=== PATIENT | male | born 2000 | race Caucasian/White ===

== ENCOUNTER 2018-07-31 15:16 | Inpatient (IN) | payer OTHER ==
[2018-07-31] MEDS ORDERED: Nicotine Inhaler* 10 MG AMP INH PRN (16:01)
[2018-07-31] MEDS ORDERED: Mouth Piece, Nicotine* 1 EACH CARTRIDGE INH PRN (16:01)
--- OUTSIDE RECORDS SUMMARY | 2018-07-31 16:09 | XMS REPORT | Continuity of Care Document ---
:2000 External Reference #:[id number] Author Name Jb Covarrubias Care Team Providers Name Role Phone Dominique Bui O.D. Care Team Information General Cleaner Unavailable Payers Type Date Identification Numbers Payment Provider Subscriber Policy Number: [id number] [employer]ible [facility] Luis Stewart Group Number: [id number] Group Name: [id number] [place] [address] PayID: [id number] Advance Directives Description No Information Available Problems Date Description Provider Status Onset: Mild depression Active Onset: 07/08/2018 Injury of conjunctiva and corneal Dominique Bui O.D. Active abrasion without foreign body, right eye, initial encounter Family History Date Family Member(s) Problem(s) Comments Father No Current Problems Mother No Current Problems Social History Type Date Description Comments Sex Unknown Marital Status Single Occupation Student [employer] ETOH Use Occasionally consumes alcohol Tobacco Use Start: Unknown End: Unknown Electronic Cigarette Smoking Status Reviewed: 07/08/18 Electronic Cigarette Allergies, Adverse Reactions, Alerts Date Description Reaction Status Severity Comments 07/08/2018 Amoxicillin Active Medications Medication Date Status Form Strength Qnty SIG Indications Ordering Provider Polytrim Active Solution 18075-7.1Un 10ml 1 drop S05.01xA Dominique Desir 018 it/ML-% right eye [place], three O.D. times a day Fluoxetine Active Capsules 20mg Take 1 Unknown HCL 000 Capsule By Mouth Every Day Immunizations Description No Information Available Vital Signs Description No Information Available Results Description No Information Available Procedures Date Code Description Status 07/08/2018 98006 New Patient Comprehensive Exam Completed Encounters Description No Information Available Plan of Treatment 07/08/2018 - Dominique Bui O.D.S05.01xA Injury of conjunctiva and corneal abrasion without foreign bNew Medication:Polytrim 76646-2.1 Unit/ML-% - 1 drop right eye three times a dayComments:There is a scratch on the surface of your right eye. It will heal on it's own. Use artificial tears as needed to help with irritation. Do not get water in the eye todayUse polytrim drops 3 times a day for 2 days. If your symptoms persist beyond 2 days, please call the office to be seen
--- NOTE | 2018-07-31 16:10 | ED ---
Psychiatric Complaint - HPI Summary HPI Summary: This patient is a 18 year old M presenting to ED with a chief complaint of SI thoughts without a plan since 1 week ago. Within the last week, the patient reports that he cant do anything and is seeing his condition spiral down. He has an appointment scheduled to be seen for his sx but the thoughts have become too much that he brought himself to the ED to be evaluated. This will be the first time he has been to the hospital for his sx. He has had no prior attempts but has come close several times. PMHx of depression (dx 1 year ago). At that time, he went on SSRI and took a semester off of school. After, he felt stable to get off of therapy but stayed on SSRI. Looking back, he thinks he was in a manic state. Then recently, he went back into depression and talked to his therapist and the doctor that dx him. They think he might be bipolar. - History Of Current Complaint Chief Complaint: EDMentalHealth Hx Obtained From: Patient Onset/Duration: Sudden Onset, Lasting Weeks, Still Present Timing: Weeks Severity Currently: None Character: Depressed Aggravating Factor(s): Nothing Alleviating Factor(s): Nothing Related History: Positive For: Prior Psychiatric Issues Has Suicidal: Reports: Thoughts. Denies: With A Plan - Allergies/Home Medications Allergies/Adverse Reactions: Allergies Allergy/AdvReac Type Severity Reaction Status Date / Time amoxicillin Allergy Hives Verified 08/01/18 02:07 PMH/Surg Hx/FS Hx/Imm Hx Endocrine/Hematology History: Denies: Hx Diabetes Psychiatric History: Reports: Hx Depression Infectious Disease History: No Infectious Disease History: Denies: Traveled Outside the [place] in Last 30 Days - Family History Known Family History: Negative: Diabetes - Social History Alcohol Use: None Substance Use Type: Reports: None Smoking Status (MU): Never Smoked Tobacco Review of Systems Negative: Fever, Chills Negative: Erythema Negative: Sore Throat Negative: Chest Pain Negative: Shortness Of Breath, Cough Negative: Abdominal Pain, Vomiting, Nausea Negative: dysuria, hematuria Negative: Myalgia, Edema Negative: Rash Neurological: Other - denies dizziness Positive: Depressed, Other - SI All Other Systems Reviewed And Are Negative: Yes Physical Exam - Summary Physical Exam Summary: Constitutional: Well-developed, Well-nourished, Alert. (-) Distressed Skin: Warm, Dry HENT: Normocephalic; Atraumatic Eyes: Conjunctiva normal Neck: Musculoskeletal ROM normal neck. (-) JVD, (-) Stridor, (-) Tracheal deviation Cardio: Rhythm regular, rate normal, Heart sounds normal; Intact distal pulses; The pedal pulses are 2+ and symmetric. Radial pulses are 2+ and symmetric. (-) Murmur Pulmonary/Chest wall: Effort normal. (-) Respiratory distress, (-) Wheezes, (-) Rales Abd: Soft, (-) epigastric tenderness, (-) Distension, (-) Guarding, (-) Rebound Musculoskeletal: (-) Edema Lymph: (-) Cervical adenopathy Neuro: Alert, Oriented x3 Psych: Mood and affect Normal Triage Information Reviewed: Yes Vital Signs On Initial Exam: Initial Vitals Temp Pulse Resp BP Pulse Ox 98.1 F 69 18 157/93 100 07/31/18 15:23 07/31/18 15:23 07/31/18 15:23 07/31/18 15:23 07/31/18 15:23 Vital Signs Reviewed: Yes Diagnostics - Vital Signs Vital Signs Temp Pulse Resp BP Pulse Ox 07/31/18 15:23 98.1 F 69 18 157/93 100 - Laboratory Result Diagrams: 07/31/18 16:14 07/31/18 16:12 Lab Statement: Any lab studies that have been ordered have been reviewed, and results considered in the medical decision making process. Course/Dx - Course Assessment/Plan: This patient is a 18 year old M presenting to ED with a chief complaint of SI thoughts without a plan since 1 week ago. Patient was medically cleared at 1557. This patient will be signed out to Dr. Alcala, pending dispo, awaiting E. - Differential Dx/Clinical Impression Provider Diagnosis: Unspecified mood [affective] disorder Discharge - Sign-Out/Discharge Documenting (check all that apply): Sign-Out Patient - pending dispo, awaiting MHE Signing out patient TO: Lucia Alcala Receiving patient FROM: Vincent Hamlin - Discharge Plan Condition: Improved Disposition: ADMITTED TO [facility] - Billing Disposition and Condition Condition: IMPROVED Disposition: Admitted to [facility] - Attestation Statements Document Initiated by Scribe: Yes Documenting Scribe: Jaden Becerra Provider For Whom Scribe is Documenting (Include Credential): Vincent Hamlin MD Scribe Attestation: I, Jaden Becerra, scribed for Vincent Hamlin MD on 08/04/18 at 1134. Scribe Documentation Reviewed: Yes Provider Attestation: The documentation as recorded by the scribe, Jaden Becerra accurately reflects the service I personally performed and the decisions made by me, Vincent Hamlin MD
[2018-07-31 16:30] LABS: ABS Basophils 0.1 10^3/ul (0-0.2); ABS Eosinophils 0.1 10^3/ul (0-0.6); ABS Monocytes 0.6 10^3/ul (0-0.8); ABS Neutrophils 5.7 10^3/ul (1.5-7.7); ABS Nucleated RBC 0 10^3/ul; Eosinophil % 1.4 % (0-6); Hematocrit 46 % (42-52); Hemoglobin 15.6 g/dl (14.0-18.0); Lymphocyte % 23.6 % (25-47); Mean Corpuscular HGB Conc 34 g/dl (31-36); Mean Corpuscular Hemoglobin 32 pg (27-31); Mean Corpuscular Volume 94 fL (80-94); Mean Platelet Volume 8.4 um3 (7.4-10.4); Nucleated Red Blood Cells % 0.2; Platelet Count 307 10^3/ul (150-450); Red Blood Count 4.94 10^6/ul (4.00-5.40); Red Cell Distribution Width 14 % (10.5-15); White Blood Count 8.5 10^3/ul (3.5-10.8)
[2018-07-31 16:41] LABS: EGFR Non-African American 94.2 (>60)
--- NOTE | 2018-07-31 19:47 | ED ---
Progress - Progress Note Progress Note: 19:00 hrs - Pt sign out received from Dr. Vincent Hamlin MD at the change of shift due to a pending MHE Course/Dx - Course Course Of Treatment: Pt admited voluntarily to Dr. Mayes with a final Dx of unspecified mood disorder. - Diagnoses Provider Diagnoses: Unspecified mood [affective] disorder Discharge - Sign-Out/Discharge Documenting (check all that apply): Patient Departure - Admit - Discharge Plan Condition: Stable Disposition: ADMITTED TO [facility] - Billing Disposition and Condition Condition: STABLE Disposition: Admitted to [facility] - Attestation Statements Document Initiated by Scribe: Yes Documenting Scribe: Latisha Cruz Provider For Whom Deniz is Documenting (Include Credential): Dr. Lucia Alcala MD Scribe Attestation: Latisha Sam , scribed for Dr. Lucia Alcala MD on 08/01/18 at 0516. Scribe Documentation Reviewed: Yes Provider Attestation: The documentation as recorded by the Latisha zelaya accurately reflects the service I personally performed and the decisions made by , Dr. Lucia Alcala MD
[2018-07-31 22:36] LABS: Urine Appearance Cloudy; Urine Blood Negative (Negative); Urine Color Straw; Urine Ketones Negative (Negative); Urine Protein Negative (Negative); Urine Specific Gravity 1.008 (1.010-1.030); Urine Urobilinogen Negative (Negative)
[2018-08-01] MEDS ORDERED: Al Hydrox/Mg Hydrox/Simet LIQ* 30 ML UDC PO PRN (04:53)
[2018-08-01] MEDS ORDERED: Acetaminophen TAB* 325 MG PO PRN (04:53)
[2018-08-01] MEDS ORDERED: Nicotine GUM* 2 MG PO PRN (04:53)
[2018-08-01] MEDS ORDERED: hydrOXYzine HCL TAB* 50 MG PO PRN (04:55)
[2018-08-01 07:55] VITALS: BP 110/61
[2018-08-01] MEDS ORDERED: Vitamin THERAPEUTIC TAB PO SCH (09:00)
--- NOTE | 2018-08-02 00:51 | HP ---
CC: [facility]; [facility]; Dr. Owens, [place] * HISTORY AND PHYSICAL AND DISCHARGE SUMMARY: DATE OF ADMISSION: 08/01/18 DATE OF DISCHARGE: 08/01/18 SUPERVISING PSYCHIATRIST: Dr. Dong Mayes.* (DICTATED BY WE[facility] ROACH NP) JUSTIFICATION FOR ADMISSION: The patient presented to the emergency department due to increased depressed mood and suicidal ideation. He denied plan of suicide or intent. He reported difficulty with mood swings and concern about bipolar disorder. The patient also reported daily marijuana use. HISTORY OF PRESENT ILLNESS: Jb is a 18-year-old student of [employer] , who presented to the emergency department seeking assistance in obtaining psychiatric services. He reports having attempted to obtain counseling services through [employer] and was fearful that he was not able to wait due to increased depression, anxiety, and thoughts of suicide. The patient has been prescribed fluoxetine 20 mg for approximately a year by his primary care provider. It was at the same time of year last year when attending [employer] that he started having increased problems with depression and anxiety. He chose to take a medical leave in the spring of this year and stayed home for the summer in [place]. He returned to college in April of this year. He states that things went well for a couple of weeks. He reports periods of feeling energized and identifies feeling overconfident and "putting a lot on my plate." He states he has periods of high achievement and hyperfocus, he states , in these. He also had decreased need of sleep. The patient reports that after these periods of feeling energized, he quickly plummets to a depressed state wherein he is isolative, has difficulty concentrating, has poor appetite, excessive guilt, anhedonia, and sporadic sleep. He states that he endorses moderate anxiety, which is at times a motivator for him to complete tasks as well. He reports increase in thoughts of suicide and use of marijuana in the past few months. He is concerned about mood swings. I do not see evidence of severe mood lability, grandiosity. He is calm and in behavioral control and he is able to converse with congruent affect. He denies current suicidal ideation. He states that he was not expecting to be admitted to the hospital. He states preference to return to school this weekend, so as not to become behind in schoolwork. He is an avid swimmer and has a swim meet to attend tomorrow. This promotion writer reaches out to his mother, Imani, at [phone]. She reports that she is preparing to come to [place] to support her son. She states that he has a pretty significant history of depressive episodes. She states that he has been working very well with his primary care provider who is prescribing fluoxetine, but has been hesitant to do any further medication changes until he is seen by a psychiatrist. They have reached out to various providers and are having difficulty finding those who accept his insurance; also access to available providers is a barrier. His mother states that she is supportive of him to remain in the hospital over the weekend and states understanding for rationale. She states she is also supportive of him to be discharged, as she was already planning to come to [place]. After above conversation with promotion writer, the patient spoke with his mother when given option of remaining in the hospital to help with referral to outpatient providers or to be discharged to the care of his mother, the patient chose to be discharged. The patient denies suicidal ideation. He denies phobias, obsessions, or rituals. He denies HI or . There are no overt delusional or perceptual disturbances. PAST PSYCHIATRIC HISTORY: One year ago, the patient sought outpatient therapy and met with Sophie Recio locally, he took a medical leave spring and while at home he met with therapist, Greyson Smyth. He has already set up an intake at [facility] for this coming , 08/07/18. TRAUMA ABUSE HISTORY: The patient denies abuse. His father was killed in a motor vehicle accident when [place] was an infant and his younger brother was a year old. His high school cricket coach suddenly in her 30s. A friend of his from high school recently accidently overdosed on heroin. MEDICAL HISTORY: Healthy. SURGICAL HISTORY: [place] teeth extraction. PRIMARY CARE PROVIDER: Locally is [facility]. He also has a fire protection specialist, Dr. Owens, in [place]. CURRENT MEDICATIONS: Fluoxetine 20 mg daily. FAMILY PSYCHIATRIC HISTORY: Alcoholism, father. The patient reports concern that his younger brother has depression. Paternal grandmother, depression. Maternal great-grandmother, depression. The patient is not aware of suicide, bipolar, or schizophrenia in his family. SOCIAL HISTORY: The patient was born in [place] to parents. He has a maternal half-sister from his mother's first marriage. She is now in her 30s and gravely disabled due to Abdi-Gastaut disease. As stated above his father tragically in a motor vehicle crash when he was an . His mother has had a long-term boyfriend in the past, but otherwise not remarried. Shortly approximately a year after his father , the family relocated to [place], being graduated from high school. He is an avid swimmer and a state champion. He identifies as heterosexual, he is not currently dating. LEGAL HISTORY: He reports simple traffic tickets. SUBSTANCE USE HISTORY: The patient reports drinking alcohol occasionally, this past week he drank alone to the point of intoxication. He reports a history of experimenting with LSD and mushrooms. He states that he smokes marijuana daily and vapes tobacco. REVIEW OF SYSTEMS: Constitutional: Negative. No fever, chills, or fatigue. ENT: Negative. Cardiovascular: Negative. Denies chest pain or palpitations. Respiratory: Negative, but denies cough or shortness of breath. Genitourinary : Negative. Musculoskeletal: Negative. Neurological: Negative. PHYSICAL EXAM: The patient is a healthy and well-appearing adult. He declines offer of physical exam citing lack of subjective need; this is appropriate as he was examined in the emergency department. Please see ED provider report for further details. VITAL SIGNS: T 97.6, P 44, respiratory rate 16, O2 saturation 99%, BP 110/61. MENTAL STATUS EXAM: The patient is a 18-year-old, thin-framed, athletic build, white male, who appears stated age. He is cooperative and pleasant. He answers questions fully and appears to be a good historian. He is alert and oriented x3. Concentration is good. Memory is 3/3. Mood is dysphoric. Affect is full range. Speech is regular rate and rhythm with some heightened volume at times. Thought process is circumstantial, logical, and coherent. Content of thought is negative for obsessions, phobias, rituals, and delusions. He denies AH or VH. He denies active suicidal or homicidal ideation. His insight and judgment are good and fund of knowledge is excellent. LABORATORY DATA: CBC is grossly unremarkable. CMP within normal limits. Hemoglobin A1c 5.7, lipid panel within normal limits. TSH normal at 1.22. Urinalysis within normal limits. Toxicology negative for salicylates, acetaminophen, or alcohol. Urine drug screen positive for cannabinoids, which is consistent with the patient's report. IMPRESSION: Jb is a 18-year-old male, domiciled, college student, who reports significant frustration with mood and anxiety. He states concern about mood lability and need for mood stabilizer. We discussed the differentiation between bipolar and unipolar depression. The patient does not meet abrahan symptoms of bipolar and states understanding of need for further diagnostic clarification. The patient reports concern for increased decompensation should admission continue. He states appreciation for processes and services offered to him in the hospital. He denies suicidal ideation. He prefers to be discharged and is appreciative of information given to inquire about local providers. We discussed the suggestion of increasing fluoxetine to 40 mg to assess for effect of improved symptoms. The patient states that he prefers to be discharged as his mother is coming to visit him this weekend. This promotion writer spoke with his mother who is in agreement with the plan. The patient and mother were encouraged to return to the ED should symptoms worsen. Social Work secured outpatient appointments for primary care at [facility] and verified the patient's upcoming appointment at [facility]. The patient and his mother were given information in regards to Crisis Outreach. Due to consistent cannabis use, the patient is encouraged to be evaluated for substance use through [facility] as well. WEST ROACH, ELIGIO [id number]/[facility] #: [id number] FLAVIO
== END 2018-08-01 20:20 | disposition home or self-care (01) | DRG 885 ==
LOC: ED 15:16 → BSU 23:07
PROVIDERS: ADMIT Psychiatry & Neurology Psychiatry; ATTEND Psychiatry & Neurology Psychiatry
DX: F39 Unspecified mood [affective] disorder (principal); R45.851 Suicidal ideations; F32.9 Major depressive disorder, single episode, unspecified; F41.9 Anxiety disorder, unspecified; Z81.8 Family history of other mental and behavioral disorders; Z72.89 Other problems related to lifestyle; Z88.0 Allergy status to penicillin; Z72.0 Tobacco use
CPT/HCPCS: 36415; 80053; 80061; 80307; 80320; 80329; 81003; 83036; 84443; 85025; 99238; 99284; A9270-GY; G0480

== ENCOUNTER 2018-10-06 11:57 | Emergency (ER) | payer OTHER ==
--- NOTE | 2018-10-06 12:28 | ED ---
Psychiatric Complaint - HPI Summary HPI Summary: This patient is a 18 year old M brought in by police to [facility] with reported SI tendency that began prior to arrival. The patient rates the pain 0/10 in severity. Symptoms aggravated by nothing. Symptoms alleviated by nothing. Patient denies current SI. Patient states he was explaining his mental health history, including his past history of SI, to his landlord in an attempt to end his current lease. Patient states when he discussed his previous SI, his landlord called 911. - History Of Current Complaint Chief Complaint: EDMentalHealth Time Seen by Provider: 10/06/18 12:03 Hx Obtained From: Patient Onset/Duration: Sudden Onset, Lasting Hours, Resolved Timing: Constant Severity Initially: Mild Severity Currently: Mild Character: Depressed Aggravating Factor(s): Nothing Alleviating Factor(s): Nothing Related History: Positive For: Prior Psychiatric Issues - Allergies/Home Medications Allergies/Adverse Reactions: Allergies Allergy/AdvReac Type Severity Reaction Status Date / Time amoxicillin Allergy Hives Verified 10/06/18 12:03 Home Medications: Home Medications FLUoxetine CAP* [Prozac CAP*] 20 mg PO DAILY 10/06/18 [History Confirmed ] lamoTRIgine [Lamictal] 100 mg PO DAILY 10/06/18 [History Confirmed 10/06/18] PMH/Surg Hx/FS Hx/Imm Hx Previously Healthy: No Endocrine/Hematology History: Denies: Hx Diabetes Sensory History: Denies: Hx Contacts or Glasses, Hx Hearing Aid Opthamlomology History: Denies: Hx Contacts or Glasses Psychiatric History: Reports: Hx Depression Denies: Hx Anxiety, Hx Attention Deficit Hyperactivity Disorder, Hx Eating Disorder, Hx of Violent Episodes Against Others Infectious Disease History: No Infectious Disease History: Denies: Traveled Outside the [place] in Last 30 Days - Family History Known Family History: Negative: Diabetes - Social History Occupation: Student Lives: Dormitory/Roommates Alcohol Use: None Hx Substance Use: Yes Substance Use Type: Reports: Marijuana Hx Tobacco Use: Yes Smoking Status (MU): Current Every Day Smoker Review of Systems Negative: Chest Pain Psychological: Other - Negative current SI All Other Systems Reviewed And Are Negative: Yes Physical Exam - Summary Physical Exam Summary: VITAL SIGNS: Reviewed. GENERAL: Patient is a well-developed and nourished male who is lying comfortable in the stretcher. Patient is not in any acute respiratory distress. HEAD AND FACE: No signs of trauma. No ecchymosis, hematomas or skull depressions. No sinus tenderness. EYES: PERRLA, EOMI x 2, No injected conjunctiva, no nystagmus. EARS: Hearing grossly intact. Ear canals and tympanic membranes are within normal limits. MOUTH: Oropharynx within normal limits. NECK: Supple, trachea is midline, no adenopathy, no JVD, no carotid bruit, no c- spine tenderness, neck with full ROM. CHEST: Symmetric, no tenderness at palpation LUNGS: Clear to auscultation bilaterally. No wheezing or crackles. CVS: Regular rate and rhythm, S1 and S2 present, no murmurs or gallops appreciated. ABDOMEN: Soft, non-tender. No signs of distention. No rebound no guarding, and no masses palpated. Bowel sounds are normal. EXTREMITIES: FROM in all major joints, no edema, no cyanosis or clubbing. NEURO: Alert and oriented x 3. No acute neurological deficits. Speech is normal and follows commands. SKIN: Dry and warm PSYCH: Depressed, quiet, and denies any suicidal thoughts or plan. No homicidal thoughts or plan. No signs of psychosis or pressure speech. No tangential speech. Triage Information Reviewed: Yes Vital Signs On Initial Exam: Initial Vitals Temp Pulse Resp BP Pulse Ox 99.1 F 84 16 161/86 100 10/06/18 12:00 10/06/18 12:00 10/06/18 12:00 10/06/18 12:00 10/06/18 12:00 Vital Signs Reviewed: Yes Diagnostics - Vital Signs Vital Signs Temp Pulse Resp BP Pulse Ox 10/06/18 12:00 99.1 F 84 16 161/86 100 - Laboratory Result Diagrams: 10/06/18 12:24 10/06/18 12:24 Lab Statement: Any lab studies that have been ordered have been reviewed, and results considered in the medical decision making process. Course/Dx - Course Assessment/Plan: This patient is a 18 year old M brought in by police to [facility] with reported SI tendency that began prior to arrival. The patient rates the pain 0/10 in severity. Symptoms aggravated by nothing. Symptoms alleviated by nothing. Patient denies current SI. Patient states he was explaining his mental health history, including his past history of SI, to his landlord in an attempt to end his current lease. Patient states when he discussed his previous SI, his landlord called 911. Blood work w/o a significant abnormality. He is medically cleared. He is awaiting for a MHE. Patient is hemodynamically stable and A+O x 3. - Differential Dx/Clinical Impression Differential Diagnosis/HQI/PQRI: Positive: Anxiety, Depression, Suicidal Ideation Provider Diagnosis: Depression - Physician Notifications Instructed by Provider To: Other - Per MHE and Dr. Bassett (psychiatry) patient should be discharged home with a diagnosis of depression at 1739. Discharge - Sign-Out/Discharge Documenting (check all that apply): Patient Departure - Discharge home - Discharge Plan Condition: Stable Disposition: HOME Referrals: No Primary Care Phys,NOPCP [Primary Care Provider] - Additional Instructions: Per completion of a mental health evaluation, you are cleared for release and do not require inpatient psychiatric hospitalization at this time. Please go to nearest emergency room or call 911 if safety concerns arise or condition worsens. IMPORTANT PHONE NUMBERS: [facility] Behavioral Services Unit: [facility] Emergency Room Flex Unit: Suicide Prevention and Crisis Services: The Chat: Text (free and confidential online crisis service sponsored by [facility] Suicide Prevention, available Saturday-Saturday 6pm 9pm) National Suicide Prevention Lifeline: (448) 908-FQYD (4204) National Crisis Text Line: Text FRANKY to 224477 [facility] Mental Health Clinic: [facility] Outreach for Older Adults: [facility] Mental Health Association: [facility]: [facility] Office of Public Safety: [facility] Center for Counseling and Psychological Services (CAPS): -To schedule an appointment call during business hours -For urgent concerns during business hours, ask about Same Day Crisis Services. -If you need help for a mental health emergency after regular business hours and until 7:30pm, call the health center at for help connecting you with the resources you need. -If there is a life-threatening emergency and you need immediate assistance after 7:30pm, call the Office of Public Safety. [facility] is located on the lower level of the [facility] and has a private stairway entrance on the west side of the building, off of the parking lot. Business hours are Saturday - Saturday, 8:30am to 5:00pm. No changes or adjustments were made to your medication regimen during this evaluation. Continue medications as prescribed by your outpatient providers. It is our recommendation that you follow up with your private provider within the next five days. - Billing Disposition and Condition Condition: STABLE Disposition: Home - Attestation Statements Document Initiated by Deniz: Yes Documenting Scribe: Sophie Vaughan Provider For Whom Deniz is Documenting (Include Credential): Dr. Kan Cho MD Scribe Attestation: Sophie Sam, scribed for Dr. Kan Cho MD on 10/07/18 at 2050. Scribe Documentation Reviewed: Yes Provider Attestation: The documentation as recorded by the Sophie zelaya accurately reflects the service I personally performed and the decisions made by me, Dr. Kan Cho MD Status of Scribe Document: Viewed
[2018-10-06 12:35] LABS: ABS Basophils 0.1 10^3/ul (0-0.2); ABS Eosinophils 0.1 10^3/ul (0-0.6); ABS Lymphocytes 1.6 10^3/ul (1.0-4.8); ABS Monocytes 0.5 10^3/ul (0-0.8); ABS Neutrophils 3.9 10^3/ul (1.5-7.7); ABS Nucleated RBC 0 10^3/ul; Eosinophil % 2.1 %; Hematocrit 47 % (42-52); Hemoglobin 16.1 g/dl (14.0-18.0); Lymphocyte % 25.5 %; Mean Corpuscular HGB Conc 34 g/dl (31-36); Mean Corpuscular Hemoglobin 32 pg (27-31); Mean Corpuscular Volume 93 fL (80-94); Mean Platelet Volume 8.4 fL (7.4-10.4); Nucleated Red Blood Cells % 0.1; Platelet Count 259 10^3/ul (150-450); Red Blood Count 5.08 10^6/ul (4.00-5.40); Red Cell Distribution Width 13 % (10.5-15); White Blood Count 6.2 10^3/ul (3.5-10.8)
[2018-10-06 12:37] LABS: Urine Appearance Clear; Urine Bilirubin Negative (Negative); Urine Blood Negative (Negative); Urine Color Yellow; Urine Glucose Negative (Negative); Urine Ketones Negative (Negative); Urine Nitrite Negative (Negative); Urine Protein Negative (Negative); Urine Specific Gravity 1.021 (1.010-1.030); Urine Urobilinogen Negative (Negative)
[2018-10-06 12:53] LABS: ALT 8 U/L (7-52); AST 14 U/L (13-39); Albumin 4.7 g/dL (3.2-5.2); Albumin/Globulin Ratio 1.8 (1-3); Alkaline Phosphatase 65 U/L (34-104); Anion Gap 6 mmol/L (2-11); BUN/Creatinine Ratio 20.2 (8-20); Blood Urea Nitrogen 18 mg/dL (6-24); CO2 Carbon Dioxide 31 mmol/L (22-32); Calcium 9.4 mg/dL (8.6-10.3); Chloride 103 mmol/L (101-111); Globulin 2.6 g/dL (2-4); Glucose 101 mg/dL (70-100); Sodium 140 mmol/L (135-145); Total Protein 7.3 g/dL (6.4-8.9)
[2018-10-06 12:55] LABS: Barbiturates Urine Screen None Detected (None Detect); Benzodiazepine Urine Screen None Detected (None Detect); Urine Cannabinoids Screen Presumptive Positive (None Detect)
[2018-10-06 13:12] LABS: Acetaminophen < 15 mcg/mL; Alcohol < 10 mg/dL (<10); Salicylate < 2.50 mg/dL (<30)
[2018-10-06 13:26] LABS: TSH (Thyroid Stimulating Horm) 0.86 mcIU/mL (0.34-5.60)
[2018-10-06 18:16] VITALS: BP 146/89
== END 2018-10-06 19:14 | disposition home or self-care (01) ==
LOC: ED 11:57
DX: F32.9 Major depressive disorder, single episode, unspecified (principal); Z88.0 Allergy status to penicillin; F17.200 Nicotine dependence, unspecified, uncomplicated
CPT/HCPCS: 36415; 80053; 80307; 80320; 80329; 81003; 84443; 85025; 99285; G0480